=== PATIENT | female | born 1955 | race Caucasian/White ===

== ENCOUNTER 2023-05-25 11:09 | Inpatient (IN) | payer MEDICARE ==
[~2023-05-25 11:09] MED LIST: Iopamidol-370 76% 500 ML MDV (1 ML CHARGE) ONE
[2023-05-25 11:58] LABS: #Basophils 0.1 thou/uL (0.0-0.2); #Monocytes 0.8 thou/uL (0.11-0.59); #Neutrophils 16.5 thou/uL (1.40-6.50); %Basophils 0.3 % (0.0-1.0); %Eosinophils 0.1 % (0.0-10.0); %Lymphocytes 10.9 % (21.0-51.0); %Neutrophils 84.4 % (42.0-75.0); Hematocrit 33.6 % (36.0-47.0); Hemoglobin 11.3 g/dL (12.0-16.0); Mean Corpuscular HGB CONC 33.6 g/dL (32.0-36.0); Mean Corpuscular Hemoglobin 28.5 pg (27.0-31.0); Mean Corpuscular Volume 84.6 fl (78.0-98.0); Mean Platelet Volume 8.9 fL (7.4-10.4); Platelet Count 589 10x3/uL (130-400); RBC Distribution Width 14.8 % (11.5-14.5); Red Blood Cell (RBC) Count 3.97 mill/uL (4.20-5.40); White Blood Cell (WBC) Count 19.6 10x3/uL (4.8-10.8)
[2023-05-25] MEDS ORDERED: Ondansetron PF 4 MG/2 ML Vial ONE ×2 (12:12→13:52)
[2023-05-25 12:22] LABS: ALT (SGPT) 9 U/L (8-55); AST (SGOT) 16 U/L (5-34); Albumin 4.5 g/dL (3.4-4.8); Alkaline Phosphatase 77 U/L (40-110); Anion Gap 13 mmol/L (10-20); BUN (Urea Nitrogen) 5 mg/dL (9.8-20.1); Bilirubin, Total 0.3 mg/dL (0.2-1.2); Calc. Creatinine Clearance 0 mL/min (70-130); Carbon Dioxide 31 mmol/L (23-31); Chloride 90 mmol/L (98-107); Estimated GFR 78; Globulin 3.4 g/dL (2.4-3.5); Glucose 125 mg/dL (80-115); Lipase 20 U/L (8-78); Potassium 4.1 mmol/L (3.5-5.1); Protein, Total 7.9 g/dL (5.8-8.1); Sodium 130 mmol/L (136-145)
[2023-05-25 14:38] LABS: Bilirubin Negative (Negative); Blood, Urine Small (Negative); Glucose, Urine (Dipstick) Negative (Negative); Ketone, Urine Negative (Negative); Leukocyte Negative (Negative); Nitrite Negative (Negative); Protein, Urine (Dipstick) Negative (Neg-Trace); Urobilinogen 0.2 mg/dL (Less than 2); pH, Urine 7.5 (5.0-9.0)
[2023-05-25 14:39] LABS: Clarity Clear (Clear); Specific Gravity, Urine 1.004 (1.002-1.036)
[2023-05-25 14:45] LABS: Bacteria/HPF Rare-Few HPF (None Seen); CAUTI Indications for Culture Pelvic or flank pain; RBC/HPF 0-3 HPF (0-3); WBC/HPF None Seen HPF (0-3)
[2023-05-25 14:47] LABS: Urine Culture Reflex No No
[2023-05-25] MEDS ORDERED: Ondansetron ODT 4 MG TAB PO PRN (15:07)
[2023-05-25] MEDS ORDERED: Lactated Ringer's 1,000 ML IV SCH (15:30)
[2023-05-25] MEDS: Ondansetron PF 4 MG/2 ML Vial IVP PRN (16:46)
[2023-05-25] MEDS: Lactated Ringer's 1,000 ML IV SCH ×2 (16:57→21:56)
[2023-05-25] MEDS ORDERED: hydrALAZINE 20 MG/ML VIAL SLOW IVP PRN (17:12)
[2023-05-25 17:53] VITALS: BMI 27.1
[2023-05-25] MEDS ORDERED: Non-Formulary Item 1 EACH (Trazodone Hcl [Trazodone Hcl] 100 MG Tablet) PO SCH (21:00)
[2023-05-26] MEDS ORDERED: Lorazepam 2 MG/ML VIAL SLOW IVP SCH (01:07)
[2023-05-26] MEDS: Levothyroxine 100 MCG SDV IVP SCH (05:12)
[2023-05-26] MEDS: Lactated Ringer's 1,000 ML IV SCH ×3 (06:43→22:27)
[2023-05-26 07:00] LABS: #Basophils 0.1 thou/uL (0.0-0.2); #Monocytes 1.4 thou/uL (0.11-0.59); #Neutrophils 14.9 thou/uL (1.40-6.50); %Basophils 0.3 % (0.0-1.0); %Lymphocytes 17.9 % (21.0-51.0); %Monocytes 6.8 % (0.0-10.0); %Neutrophils 74.4 % (42.0-75.0); Hematocrit 30.2 % (36.0-47.0); Mean Corpuscular HGB CONC 33.1 g/dL (32.0-36.0); Mean Corpuscular Hemoglobin 28.1 pg (27.0-31.0); Mean Corpuscular Volume 84.8 fl (78.0-98.0); Mean Platelet Volume 9.2 fL (7.4-10.4); Platelet Count 510 10x3/uL (130-400); RBC Distribution Width 15.2 % (11.5-14.5); Red Blood Cell (RBC) Count 3.56 mill/uL (4.20-5.40); White Blood Cell (WBC) Count 20.1 10x3/uL (4.8-10.8)
[2023-05-26 07:40] LABS: Anion Gap 14 mmol/L (10-20); BUN (Urea Nitrogen) 8 mg/dL (9.8-20.1); Calc. Creatinine Clearance 76 mL/min (70-130); Carbon Dioxide 29 mmol/L (23-31); Chloride 93 mmol/L (98-107); Potassium 3.6 mmol/L (3.5-5.1); Sodium 132 mmol/L (136-145)
[2023-05-26 07:41] LABS: ALT (SGPT) 8 U/L (8-55); AST (SGOT) 16 U/L (5-34); Albumin 3.9 g/dL (3.4-4.8); Alkaline Phosphatase 61 U/L (40-110); Bilirubin, Total 0.7 mg/dL (0.2-1.2); Calcium 9.4 mg/dL (7.8-10.44); Estimated GFR 82; Globulin 2.7 g/dL (2.4-3.5); Glucose 109 mg/dL (80-115); Protein, Total 6.6 g/dL (5.8-8.1)
[2023-05-26] MEDS ORDERED: Non-Formulary Item 1 EACH (Levothyroxine Sodium [Levothyroxine Sodium] 100 MCG Capsule) PO SCH (09:00)
[2023-05-26] MEDS ORDERED: Losartan 25 MG TAB PO SCH (09:00)
[2023-05-26] MEDS ORDERED: Pantoprazole 40 MG VIAL IVP SCH (09:00)
[2023-05-26] MEDS ORDERED: FLU VACC QS2023(65UP)/MF59C/PF 60 MCG/0.5 ML SYRINGE IM ONE (09:00)
[2023-05-26] MEDS: Fluticasone Propionate Nasal Spray 16 gm Bottle NASAL SCH (11:13)
[2023-05-26] MEDS: Acetaminophen 325 MG TAB PO PRN (15:56)
[2023-05-26] MEDS: traZODone HCl 50 MG TAB PO SCH (22:27)
[2023-05-26] MEDS ORDERED: traZODone HCl 50 MG TAB PO SCH (22:30)
[2023-05-27] MEDS: Ondansetron PF 4 MG/2 ML Vial IVP PRN (01:40)
[2023-05-27 05:38] LABS: #Basophils 0.1 thou/uL (0.0-0.2); #Eosinphils 0.1 thou/uL (0.0-0.7); #Monocytes 1.9 thou/uL (0.11-0.59); #Neutrophils 15.7 thou/uL (1.40-6.50); %Basophils 0.2 % (0.0-1.0); %Eosinophils 0.3 % (0.0-10.0); %Lymphocytes 13.6 % (21.0-51.0); %Monocytes 9.3 % (0.0-10.0); %Neutrophils 76.2 % (42.0-75.0); Hematocrit 29.1 % (36.0-47.0); Hemoglobin 9.6 g/dL (12.0-16.0); Mean Corpuscular Hemoglobin 28.2 pg (27.0-31.0); Mean Corpuscular Volume 85.6 fl (78.0-98.0); Mean Platelet Volume 9.6 fL (7.4-10.4); Platelet Count 421 10x3/uL (130-400); RBC Distribution Width 15.3 % (11.5-14.5); White Blood Cell (WBC) Count 20.6 10x3/uL (4.8-10.8)
[2023-05-27 06:07] LABS: ALT (SGPT) 10 U/L (8-55); AST (SGOT) 15 U/L (5-34); Albumin 3.8 g/dL (3.4-4.8); Alkaline Phosphatase 58 U/L (40-110); Anion Gap 16 mmol/L (10-20); BUN (Urea Nitrogen) 14 mg/dL (9.8-20.1); Bilirubin, Total 0.5 mg/dL (0.2-1.2); Calc. Creatinine Clearance 82 mL/min (70-130); Calcium 9.2 mg/dL (7.8-10.44); Carbon Dioxide 29 mmol/L (23-31); Chloride 93 mmol/L (98-107); Estimated GFR 90; Globulin 2.7 g/dL (2.4-3.5); Glucose 111 mg/dL (80-115); Potassium 3.3 mmol/L (3.5-5.1); Protein, Total 6.5 g/dL (5.8-8.1); Sodium 135 mmol/L (136-145)
[2023-05-27] MEDS: Levothyroxine 100 MCG SDV IVP SCH (06:27)
[2023-05-27] MEDS: Levothyroxine Sodium 100 MCG TAB PO SCH (06:27)
[2023-05-27] MEDS: Lactated Ringer's 1,000 ML IV SCH ×3 (06:27→22:04)
[2023-05-27] MEDS ORDERED: Potassium Chloride 20 MEQ TAB PO SCH (08:00)
[2023-05-27] MEDS ORDERED: Potassium Chloride 20 MEQ in Premix 1 BAG IVPB SCH ×2 (08:00→10:30)
[2023-05-27] MEDS: Losartan 25 MG TAB PO SCH (09:57)
[2023-05-27] MEDS: Fluticasone Propionate Nasal Spray 16 gm Bottle NASAL SCH (09:58)
[2023-05-27 11:24] LABS: Magnesium 1.9 mg/dL (1.6-2.6)
[2023-05-27] MEDS: Acetaminophen 325 MG TAB PO PRN ×2 (18:12→22:03)
[2023-05-27] MEDS: traZODone HCl 50 MG TAB PO SCH (21:51)
[2023-05-28 04:33] LABS: #Eosinphils 0.1 thou/uL (0.0-0.7); #Monocytes 2.3 thou/uL (0.11-0.59); #Neutrophils 15.7 thou/uL (1.40-6.50); %Basophils 0.1 % (0.0-1.0); %Eosinophils 0.3 % (0.0-10.0); %Lymphocytes 15.4 % (21.0-51.0); %Monocytes 10.7 % (0.0-10.0); %Neutrophils 73.1 % (42.0-75.0); Hematocrit 30.5 % (36.0-47.0); Hemoglobin 10.1 g/dL (12.0-16.0); Mean Corpuscular HGB CONC 33.1 g/dL (32.0-36.0); Mean Corpuscular Hemoglobin 28.5 pg (27.0-31.0); Mean Corpuscular Volume 85.9 fl (78.0-98.0); Mean Platelet Volume 10.1 fL (7.4-10.4); Platelet Count 414 10x3/uL (130-400); RBC Distribution Width 15.4 % (11.5-14.5); Red Blood Cell (RBC) Count 3.55 mill/uL (4.20-5.40); White Blood Cell (WBC) Count 21.5 10x3/uL (4.8-10.8)
[2023-05-28] MEDS: Lactated Ringer's 1,000 ML IV SCH (04:49)
[2023-05-28 05:03] LABS: ALT (SGPT) 11 U/L (8-55); AST (SGOT) 16 U/L (5-34); Albumin 4.1 g/dL (3.4-4.8); Alkaline Phosphatase 70 U/L (40-110); Anion Gap 16 mmol/L (10-20); BUN (Urea Nitrogen) 20 mg/dL (9.8-20.1); Bilirubin, Total 0.5 mg/dL (0.2-1.2); Calc. Creatinine Clearance 75 mL/min (70-130); Calcium 10.2 mg/dL (7.8-10.44); Carbon Dioxide 37 mmol/L (23-31); Chloride 90 mmol/L (98-107); Estimated GFR 81; Globulin 3.2 g/dL (2.4-3.5); Glucose 130 mg/dL (80-115); Potassium 3.1 mmol/L (3.5-5.1); Protein, Total 7.3 g/dL (5.8-8.1); Sodium 140 mmol/L (136-145)
[2023-05-28] MEDS: Levothyroxine Sodium 100 MCG TAB PO SCH (07:19)
[2023-05-28] MEDS: Losartan 25 MG TAB PO SCH (08:01)
[2023-05-28] MEDS: Fluticasone Propionate Nasal Spray 16 gm Bottle NASAL SCH (08:17)
[2023-05-28] MEDS: Potassium Chloride 20 MEQ in Premix 1 BAG IVPB SCH ×2 (08:17→12:09)
[2023-05-28] MEDS ORDERED: fentaNYL 50 mcg/mL 1 mL Vial ONE ×3 (09:03→10:55)
[2023-05-28] MEDS ORDERED: Famotidine/PF 20 mg/2ml Vial ONE (09:04)
[2023-05-28] MEDS ORDERED: SUGAMMADEX SODIUM 200 MG/2 ML VIAL ONE (09:04)
[2023-05-28] MEDS ORDERED: CEFAZOLIN 2 GM VIAL ONE (09:10)
[2023-05-28] MEDS ORDERED: Sodium Chloride 0.9% 100 ML ONE (09:10)
[2023-05-28] MEDS ORDERED: Dexamethasone 20 MG/5 ML VIAL ONE (09:16)
[2023-05-28] MEDS ORDERED: Succinylcholine Chloride 100 MG/5 ML SYRINGE FS ONE (09:16)
[2023-05-28] MEDS ORDERED: Lidocaine 1% PF 5 ML VIAL ONE ×2 (09:16→09:58)
[2023-05-28] MEDS ORDERED: Ketorolac Tromethamine 30 MG/ML VIAL ONE (09:16)
[2023-05-28] MEDS ORDERED: PROPOFOL 200 MG/20 ML VIAL ONE (09:16)
[2023-05-28] MEDS ORDERED: Ondansetron PF 4 MG/2 ML Vial ONE (09:16)
[2023-05-28] MEDS ORDERED: Rocuronium Bromide 10 MG/ML (10ML VIAL) ONE (09:16)
[2023-05-28] MEDS ORDERED: Bupivacaine 0.25% HCL 30 ML VIAL ONE (09:58)
[2023-05-28] MEDS ORDERED: Dexmedetomidine 200 MCG/2 ML VIAL ONE (09:58)
[2023-05-28] MEDS ORDERED: Ondansetron HCl/PF 4 MG/2 ML Vial IVP PRN (10:25)
[2023-05-28] MEDS ORDERED: Promethazine HCl 25 MG/ML VIAL IM PRN ×2 (10:25→10:54)
[2023-05-28] MEDS ORDERED: Naloxone HCl 0.4 mg/ml Vial IV PRN (10:54)
[2023-05-28] MEDS ORDERED: Ondansetron PF 4 MG/2 ML Vial IVP PRN (10:54)
[2023-05-28] MEDS ORDERED: HYDROmorphone 10 mg/100 ml CADD IVPB PRN (10:54)
[2023-05-28] MEDS ORDERED: PCA Communication Order-Pharmacy FS SCH (11:00)
[2023-05-28] MEDS: Sodium Chloride 0.9% 1,000 ML IV SCH ×2 (12:09→16:09)
[2023-05-29] MEDS: Sodium Chloride 0.9% 1,000 ML IV SCH ×3 (01:53→09:34)
[2023-05-29] MEDS: Levothyroxine Sodium 100 MCG TAB PO SCH (05:53)
[2023-05-29 07:32] LABS: #Monocytes 1.5 thou/uL (0.11-0.59); #Neutrophils 8.3 thou/uL (1.40-6.50); %Basophils 0.1 % (0.0-1.0); %Lymphocytes 27.1 % (21.0-51.0); %Monocytes 11.2 % (0.0-10.0); %Neutrophils 61.4 % (42.0-75.0); Hematocrit 29.7 % (36.0-47.0); Hemoglobin 9.5 g/dL (12.0-16.0); Mean Corpuscular Hemoglobin 28.4 pg (27.0-31.0); Mean Corpuscular Volume 88.7 fl (78.0-98.0); Mean Platelet Volume 10.8 fL (7.4-10.4); Platelet Count 391 10x3/uL (130-400); Red Blood Cell (RBC) Count 3.35 mill/uL (4.20-5.40); White Blood Cell (WBC) Count 13.5 10x3/uL (4.8-10.8)
[2023-05-29 08:33] LABS: ALT (SGPT) 12 U/L (8-55); AST (SGOT) 19 U/L (5-34); Albumin 3.3 g/dL (3.4-4.8); Alkaline Phosphatase 61 U/L (40-110); Anion Gap 17 mmol/L (10-20); BUN (Urea Nitrogen) 20 mg/dL (9.8-20.1); Bilirubin, Total 0.4 mg/dL (0.2-1.2); Calc. Creatinine Clearance 82 mL/min (70-130); Calcium 8.4 mg/dL (7.8-10.44); Carbon Dioxide 29 mmol/L (23-31); Chloride 98 mmol/L (98-107); Estimated GFR 90; Globulin 2.7 g/dL (2.4-3.5); Glucose 80 mg/dL (80-115); Potassium 3.4 mmol/L (3.5-5.1); Sodium 141 mmol/L (136-145)
[2023-05-29] MEDS: Fluticasone Propionate Nasal Spray 16 gm Bottle NASAL SCH (09:16)
[2023-05-29] MEDS: Pantoprazole 40 MG VIAL IVP SCH (09:16)
[2023-05-29] MEDS ORDERED: HYDROcodone/Acetaminophen 7.5/325 mg Tablet PO PRN (10:44)
[2023-05-29] MEDS ORDERED: traZODone HCl 50 MG TAB PO SCH (21:00)
[2023-05-30] MEDS: Sodium Chloride 0.9% 1,000 ML IV SCH ×2 (00:59→12:11)
[2023-05-30] MEDS: Levothyroxine Sodium 100 MCG TAB PO SCH (05:57)
[2023-05-30 07:24] LABS: #Eosinphils 0.1 thou/uL (0.0-0.7); #Monocytes 1.3 thou/uL (0.11-0.59); #Neutrophils 6.6 thou/uL (1.40-6.50); %Basophils 0.2 % (0.0-1.0); %Eosinophils 1.2 % (0.0-10.0); %Lymphocytes 31.3 % (21.0-51.0); %Monocytes 11.1 % (0.0-10.0); %Neutrophils 55.8 % (42.0-75.0); Hematocrit 29.5 % (36.0-47.0); Hemoglobin 9.6 g/dL (12.0-16.0); Mean Corpuscular HGB CONC 32.5 g/dL (32.0-36.0); Mean Corpuscular Hemoglobin 28.1 pg (27.0-31.0); Mean Corpuscular Volume 86.3 fl (78.0-98.0); Mean Platelet Volume 10.7 fL (7.4-10.4); Platelet Count 383 10x3/uL (130-400); RBC Distribution Width 15.7 % (11.5-14.5); Red Blood Cell (RBC) Count 3.42 mill/uL (4.20-5.40); White Blood Cell (WBC) Count 11.8 10x3/uL (4.8-10.8)
[2023-05-30 07:55] LABS: ALT (SGPT) 17 U/L (8-55); AST (SGOT) 26 U/L (5-34); Albumin 3.1 g/dL (3.4-4.8); Alkaline Phosphatase 60 U/L (40-110); Anion Gap 15 mmol/L (10-20); BUN (Urea Nitrogen) 13 mg/dL (9.8-20.1); Bilirubin, Total 0.4 mg/dL (0.2-1.2); Calc. Creatinine Clearance 88 mL/min (70-130); Calcium 8.3 mg/dL (7.8-10.44); Carbon Dioxide 27 mmol/L (23-31); Chloride 98 mmol/L (98-107); Estimated GFR 95; Globulin 2.5 g/dL (2.4-3.5); Glucose 76 mg/dL (80-115); Potassium 2.9 mmol/L (3.5-5.1); Protein, Total 5.6 g/dL (5.8-8.1); Sodium 137 mmol/L (136-145)
[2023-05-30] MEDS ORDERED: Potassium Chloride 20 MEQ in Premix 1 BAG IVPB SCH (09:00)
[2023-05-30] MEDS ORDERED: Potassium Chloride 20 MEQ TAB PO SCH (09:00)
[2023-05-30] MEDS: Fluticasone Propionate Nasal Spray 16 gm Bottle NASAL SCH (09:21)
[2023-05-30] MEDS: Pantoprazole 40 MG VIAL IVP SCH (09:21)
[2023-05-30 09:22] LABS: Magnesium 2.2 mg/dL (1.6-2.6)
[2023-05-30 12:37] VITALS: BP 157/78; TEMP 98
== END 2023-05-30 15:28 | disposition home or self-care (01) | DRG 336 ==
LOC: ERS 11:09 → ERHOLD 14:17 → T4-B 16:23 → OBSVTOIN 05-26 13:48
PROVIDERS: ADMIT Student in an Organized Health Care Education/Training Program; ATTEND Student in an Organized Health Care Education/Training Program
PROC: 0DN80ZZ Release Small Intestine, Open Approach (ICD-10-PCS; principal; 2023-05-28)
DX: K56.600 Partial intestinal obstruction, unspecified as to cause (principal); E87.1 Hypo-osmolality and hyponatremia; Z93.2 Ileostomy status; K56.2 Volvulus; E87.8 Other disorders of electrolyte and fluid balance, not elsewhere classified; I10 Essential (primary) hypertension; E03.9 Hypothyroidism, unspecified; K21.9 Gastro-esophageal reflux disease without esophagitis; G47.00 Insomnia, unspecified; Z79.899 Other long term (current) drug therapy; Z90.89 Acquired absence of other organs; Z90.49 Acquired absence of other specified parts of digestive tract; Z98.890 Other specified postprocedural states; Z88.1 Allergy status to other antibiotic agents; F17.210 Nicotine dependence, cigarettes, uncomplicated; E87.6 Hypokalemia
CPT/HCPCS: 36415; 74019; 74177; 74250; 80053; 81001; 83605; 83690; 83735; 83930; 83935; 84300; 85025; 96361; 96372; 96374; 96375; 96376; A4314; C1776; C9113; G0378; J0360; J1100; J1650; J1885; J2405; J2704; J3010; J3480; J3490; J7050; J7120; Q9967; S0020; S0028

== ENCOUNTER 2023-06-15 08:29 | Outpatient (CLI) | payer MEDICARE | END 2023-06-15 08:30 | disposition home or self-care (01) | LOC: BICMAMMO 08:29 | PROVIDERS: ATTEND Student in an Organized Health Care Education/Training Program | DX: Z12.31 Encounter for screening mammogram for malignant neoplasm of breast (principal) | CPT/HCPCS: 77063; 77067 ==

== ENCOUNTER 2024-05-29 09:50 | Outpatient (CLI) | payer MEDICARE | END 2024-05-29 09:51 | disposition home or self-care (01) | LOC: MRI 09:50 | PROVIDERS: ATTEND Student in an Organized Health Care Education/Training Program | DX: M25.362 Other instability, left knee (principal); S83.242A Other tear of medial meniscus, current injury, left knee, initial encounter ==